=== PATIENT | male | born 1975 ===

== ENCOUNTER → 2020-09-17 06:40 | Outpatient (CLI) | payer OTHER | END | disposition home or self-care (01) | LOC: PPH VACUNA 06:40 | DX: Z23 Encounter for immunization (principal) ==

== ENCOUNTER → 2020-10-08 00:26 | Outpatient (CLI) | payer OTHER | END | disposition home or self-care (01) | LOC: PPH VACUNA 00:26 | DX: Z23 Encounter for immunization (principal) ==